=== PATIENT | male | born 1990 | race Caucasian/White ===

== ENCOUNTER 2016-11-05 08:12 | Day surgery (SDC) | payer BC, OTHER ==
[2016-11-01 11:48] VITALS: BMI 35.2
[~2016-11-05 08:12] MED LIST: LACTATED RINGERS 1,000 ML IV SCH; LIDOCAINE 1% 20 ML VIAL (10MG/ML) FOR IV START INTRADERMA PRN
[2016-11-05 08:21] VITALS: RESP 18; TEMP 98.1
[2016-11-05] MEDS ORDERED: LACTATED RINGERS 1,000 ML IV ONE (08:22)
[2016-11-05] MEDS ORDERED: PROPOFOL 10 MG/ML 20 ML VIAL IV ONE (09:22)
--- NOTE | 2016-11-05 09:41 | P.PCN ---
Date of Procedure: 11/05/16 Preoperative Diagnosis: Postoperative Diagnosis: Procedure(s) Performed: BRIEF HISTORY: Patient is a 26-year-old pleasant white male, scheduled for an elective colonoscopy as a part of evaluation of chronic diarrhea for the last few months duration. He was diagnosed with ulcerative colitis in 2012 and in the last 6 months had 2 flareup. Currently on prednisone 10 mg daily which was started about 6 weeks ago at 30 mg daily. He still has 56 loose watery bowel movements daily but no blood or mucus in the stool. PROCEDURE PERFORMED: Colonoscopy with biopsy. PREOPERATIVE DIAGNOSIS: History of ulcerative colitis, chronic diarrhea. IV sedation per Anesthesia. PROCEDURE: After informed consent was obtained, the patient, was brought into the endoscopy unit. IV sedation was administered by Anesthesia under continuous monitoring. Digital rectal examination was normal. Initially the Olympus CF- 160 flexible video colonoscope was then inserted in the rectum, gradually advanced into the cecum without any difficulty. Careful examination was performed as the scope was gradually being withdrawn. Ileocecal valve and the appendiceal orifice were visualized and appeared normal. Prep was excellent. Mucosa of the cecum, ascending colon, transverse colon, descending colon, sigmoid colon, and rectum had mild diffuse colitis with mild mucosal erythema, friability but no exudates or spotting his bleeding. Multiple random biopsies were done from different areas of the colon. Retroflexion was performed in the rectum and no lesions were seen. The patient tolerated the procedure well. IMPRESSION: Mild diffuse colitis involving the entire colon with mucosal erythema and friability but no ulcerations or erosions. No evidence of colorectal neoplasia RECOMMENDATIONS: Findings of this examination were discussed with the patient as well as his family. He was advised to continue with prednisone 10 mg daily and continue down to 5 minute grams daily for 2 weeks and stop it. He'll be seen in the office in 2-3 weeks. If he remains steroid dependent or requires steroids frequently will consider biologic therapy in the near future.. Implants: Indications for Procedure: Operative Findings: Description of Procedure:
[2016-11-05 10:05] VITALS: BP 116/81; PULSE 68
[2016-11-05 10:25] LABS: Glucose,Whole Blood 89 mg/dL (75-99)
== END 2016-11-05 10:17 | disposition home or self-care (01) ==
LOC: ORWHC2ENDO 08:12
PROVIDERS: ATTEND Internal Medicine Gastroenterology
DX: K52.9 Noninfective gastroenteritis and colitis, unspecified (principal); E66.9 Obesity, unspecified; Z68.35 Body mass index [BMI] 35.0-35.9, adult; Z79.52 Long term (current) use of systemic steroids; Z79.899 Other long term (current) drug therapy; Z79.1 Long term (current) use of non-steroidal anti-inflammatories (NSAID)
CPT/HCPCS: 88305; 45380; J2704

== ENCOUNTER → 2018-07-11 | Outpatient (CLI) | payer OTHER ==
[2018-07-11 17:22] LABS: Basophils % (A) 0 %; Eosinophils # (A) 0.2 k/uL (0-0.7); Eosinophils % (A) 2 %; HCT 44.6 % (39.0-53.0); HGB 14.3 gm/dL (13.0-17.5); Lymphocytes # (A) 1.4 k/uL (1.0-4.8); Lymphocytes % (A) 19 %; MCH 29.4 pg (25.0-35.0); MCHC 32.1 g/dL (31.0-37.0); MCV 91.8 fL (80.0-100.0); Monocytes # (A) 0.6 k/uL (0-1.0); Monocytes % (A) 8 %; Neutrophils # (A) 5.4 k/uL (1.3-7.7); Neutrophils % (A) 70 %; Platelet Count 258 k/uL (150-450); RBC 4.86 m/uL (4.30-5.90); RDW 13.4 % (11.5-15.5); WBC 7.8 k/uL (3.8-10.6)
[2018-07-12 01:46] LABS: Albumin 4.5 g/dL (3.80-4.90); Albumin/Globulin Ratio 2.14 (1.60-3.17); Calcium 9.6 mg/dL (8.7-10.3); Globulin 2.1 g/dL (1.6-3.3); Total Bilirubin 0.4 mg/dL (0.2-1.2); Total Protein 6.6 g/dL (6.2-8.2)
== END | disposition home or self-care (01) ==
LOC: LABWHC1 16:18
PROVIDERS: ATTEND Internal Medicine Gastroenterology
DX: K51.90 Ulcerative colitis, unspecified, without complications (principal)
CPT/HCPCS: 36415; 80053; 85025

== ENCOUNTER → 2019-02-26 | Outpatient (CLI) | payer OTHER | END | disposition home or self-care (01) | LOC: LABWHC1 12:29 | PROVIDERS: ATTEND Internal Medicine Gastroenterology | DX: K50.90 Crohn's disease, unspecified, without complications (principal) | CPT/HCPCS: 36415 ==

== ENCOUNTER 2019-12-07 07:08 | Day surgery (SDC) | payer OTHER ==
[2019-11-09 12:15] VITALS: BMI 36.6
[~2019-12-07 07:08] MED LIST changes: +LIDOCAINE 1% (10MG/ML) FOR IV START INTRADERMA PRN; -LIDOCAINE 1% 20 ML VIAL (10MG/ML) FOR IV START INTRADERMA PRN
[2019-12-07 07:40] VITALS: TEMP 97
[2019-12-07] MEDS ORDERED: MIDAZOLAM 2 MG/2 ML VIAL ONE (08:10)
[2019-12-07] MEDS ORDERED: PROPOFOL 10 MG/ML 20 ML VIAL IV ONE (08:10)
[2019-12-07 08:20] LABS: Glucose,Whole Blood 106 mg/dL (75-99)
--- NOTE | 2019-12-07 08:27 | P.PCN ---
Date of Procedure: 12/07/19 Procedure(s) Performed: BRIEF HISTORY: Patient is a 29 year-old pleasant [white male scheduled for an elective colonoscopy as a part of surveillance of long-standing history of ulcerative colitis diagnosed in 2012. He was maintained on Humira in [id number] and was stopped because of insurance reasons. He is currently maintained on inflectra infusions every 2 months. He recently had a flareup 6 weeks ago and currently on steroids. PROCEDURE PERFORMED: Colonoscopy with multiple random biopsies . PREOPERATIVE DIAGNOSIS: long-standing history of ulcerative colitis IV sedation per Anesthesia. PROCEDURE: After informed consent was obtained, the patient, was brought into the endoscopy unit. IV sedation was administered by Anesthesia under continuous monitoring. Digital rectal examination was normal. Initially the Olympus CF-160 flexible video colonoscope was then inserted in the rectum, gradually advanced into the cecum without any difficulty. Careful examination was performed as the scope was gradually being withdrawn. Ileocecal valve and the appendiceal orifice were visualized and appeared normal. Prep was excellent. Mucosa of the cecum, ascending colon, transverse colon, descending colon, sigmoid colon, and rectum had diffuse colitis with mild to moderate erythema friability granularity and spontaneous bleeding and multiple random biopsies were done from the cecum to the rectum. No polyps noted. Retroflexion was performed in the rectum and no lesions were seen. The patient tolerated the procedure well. IMPRESSION: [id number] active colitis involving the entire colon with mucosal erythema granularity friability and spontaneous bleeding status post biopsies. No evidence of colorectal neoplasia RECOMMENDATIONS: Findings of this examination were discussed with the patient as well as his family. He was advised to follow with the biopsy results. If there is no evidence of dysplasia he can have a repeat colonoscopy in 2 years. He will continue with inflectra infusions and tapered prednisone as suggested. He will be seen in office in 6 weeks.
[2019-12-07 08:51] VITALS: BP 116/80; PULSE 98; RESP 20
== END 2019-12-07 09:22 | disposition home or self-care (01) ==
LOC: ORWHC2ENDO 07:08
PROVIDERS: ATTEND Internal Medicine Gastroenterology
DX: K52.9 Noninfective gastroenteritis and colitis, unspecified (principal); E11.9 Type 2 diabetes mellitus without complications; Z79.84 Long term (current) use of oral hypoglycemic drugs; Z79.899 Other long term (current) drug therapy; Z98.890 Other specified postprocedural states
CPT/HCPCS: 88305; 45380; J2250; J2704

== ENCOUNTER 2022-02-19 06:55 | Day surgery (SDC) | payer OTHER ==
[~2022-02-19 06:55] MED LIST changes: -LIDOCAINE 1% (10MG/ML) FOR IV START INTRADERMA PRN
[2022-02-19 07:22] VITALS: RESP 16; TEMP 97.7
[2022-02-19] MEDS ORDERED: PROPOFOL 10 MG/ML 20 ML VIAL IV ONE (07:58)
--- NOTE | 2022-02-19 08:17 | P.PCN ---
Date of Procedure: 02/19/22 Procedure(s) Performed: BRIEF HISTORY: Patient is a 82-year-old pleasant white fmale scheduled for an elective colonoscopy as a part of surveillance of long-standing history of ulcerative colitis diagnosed in 2012. He is currently maintained on insulin recommendations every 8 weeks and remains in clinical remission PROCEDURE PERFORMED: Colonoscopy With random biopsies. PREOPERATIVE DIAGNOSIS: Long-standing history of ulcerative colitis IV sedation per Anesthesia. PROCEDURE: After informed consent was obtained, the patient, was brought into the endoscopy unit. IV sedation was administered by Anesthesia under continuous monitoring. Digital rectal examination was normal. Initially the Olympus CF-160 flexible video colonoscope was then inserted in the rectum, gradually advanced into the cecum without any difficulty. Careful examination was performed as the scope was gradually being withdrawn. Ileocecal valve and the appendiceal orifice were visualized and appeared normal. Prep was excellent. Mucosa of the cecum, ascending colon, transverse colon, descending colon, sigmoid colon, and rectum appeared normal. and biopsies were done from the cecum to rectum at every 10 cm intervals to rule out dysplasia. Retroflexion was performed in the rectum and no lesions were seen. The patient tolerated the procedure well. IMPRESSION: Normal-appearing colon from rectum to cecum revealed evidence of active colitis or colorectal neoplasia . RECOMMENDATIONS: Findings of this examination were discussed with the patient as well as his family. He was advised to follow with the biopsy results. If the biopsies do not show any evidence of dysplasia, he was advised to have a repeat colonoscopy in 2 years.
[2022-02-19 08:40] VITALS: BP 127/80; PULSE 79
== END 2022-02-19 08:57 | disposition home or self-care (01) ==
LOC: ORWHC2ENDO 06:55
PROVIDERS: ATTEND Internal Medicine Gastroenterology
DX: K51.90 Ulcerative colitis, unspecified, without complications (principal)
CPT/HCPCS: 88305; 45380; J2704

== ENCOUNTER → 2023-08-17 | Outpatient (CLI) | payer OTHER ==
[2023-08-17] MEDS: SODIUM CHLORIDE 0.9% 500 ML 500 ML in EMPTY BAG 1 BAG IV PRN (07:57)
[2023-08-17] MEDS: INFLIXIMAB-DYYB 600 MG in SODIUM CHLORIDE 0.9% 190 ML IV NR (08:11)
[2023-08-17 08:17] VITALS: RESP 16; TEMP 97.7
[2023-08-17 09:05] VITALS: BP 105/72; PULSE 79
== END ==
LOC: PROCWHC3 07:35
PROVIDERS: ATTEND Internal Medicine Gastroenterology
DX: K51.90 Ulcerative colitis, unspecified, without complications (principal)
CPT/HCPCS: 96413; Q5103; 96415

== ENCOUNTER 2024-03-21 08:07 | Day surgery (SDC) | payer BC, OTHER ==
[2024-03-21 08:29] VITALS: TEMP 97.4
[2024-03-21] MEDS: IV FLUID CONTINUATION 1,000 ML IV ONE (08:29)
[2024-03-21] MEDS: LACTATED RINGERS 1,000 ML IV SCH (08:34)
[2024-03-21] MEDS ORDERED: PROPOFOL 10 MG/ML 20 ML VIAL IV ONE (08:38)
[2024-03-21] MEDS ORDERED: LIDOCAINE 2% (PF) 20 MG/ML 5 ML VIAL ONE (08:38)
[2024-03-21] MEDS ORDERED: ONDANSETRON 4 MG/2 ML VIAL ONE (08:38)
[2024-03-21 08:42] LABS: Glucose,Whole Blood 107 mg/dL (70-110)
--- NOTE | 2024-03-21 08:51 | P.PCN ---
Date of Procedure: 03/21/24 Procedure(s) Performed: BRIEF HISTORY: Patient is a 34-year-old pleasant white male scheduled for an elective colonoscopy as a part of screening for colon cancer/longstanding history of ulcerative colitis diagnosed in 2018. Presently maintained on Inflectra infusions every 8 weeks and remains in clinical remission PROCEDURE PERFORMED: Colonoscopy with random biopsies. PREOPERATIVE DIAGNOSIS: Screening for colon cancer/longstanding history of ulcerative. IV sedation per Anesthesia. PROCEDURE: After informed consent was obtained, the patient, was brought into the endoscopy unit. IV sedation was administered by Anesthesia under continuous monitoring. Digital rectal examination was normal. Initially the Olympus CF-160 flexible video colonoscope was then inserted in the rectum, gradually advanced into the cecum without any difficulty. Careful examination was performed as the scope was gradually being withdrawn. Ileocecal valve and the appendiceal orifice were visualized and appeared normal. Prep was excellent. Mucosa of the cecum, ascending colon, transverse colon, descending colon, sigmoid colon, and rectum appeared normal. Biopsies were done from the cecum to rectum at every 10 cm intervals rule out dysplasia retroflexion was performed in the rectum and no lesions were seen. The patient tolerated the procedure well. IMPRESSION: Normal-appearing colon from rectum to cecum no evidence of active colitis or colorectal neoplasia. RECOMMENDATIONS: Findings of this examination were discussed with the patient as well as his family. He was advised to follow-up with the biopsy results. If there is no evidence of dysplasia he can have repeat colonoscopy in 2 years..
[2024-03-21 09:22] VITALS: BP 124/80; PULSE 81; RESP 20
== END 2024-03-21 09:26 | disposition home or self-care (01) ==
LOC: ORWHC2ENDO 08:07
PROVIDERS: ATTEND Internal Medicine Gastroenterology
DX: K51.90 Ulcerative colitis, unspecified, without complications (principal); F17.200 Nicotine dependence, unspecified, uncomplicated
CPT/HCPCS: 45380; J2405; J2704; J2003; 88305